=== PATIENT | male | born 1945 | race African-American/Black ===

== ENCOUNTER 2016-10-31 14:34 | Observation (INO) | payer OTHER ==
[~2016-10-31] VITALS: Ht 175.3 cm; Wt 65.8 kg
[2016-10-31 15:16] LABS: BASOPHILS % 1.4 % (0.0-2.0); EOSINOPHILS % 3.8 % (0.0-5.0); HEMATOCRIT. 35.9 % (42.0-52.0); LYMPHOCYTES % 20.3 % (20.0-50.0); MEAN CORPUSCULAR HEMOGLOBIN 28.1 pg (28.0-32.0); MEAN PLATELET VOLUME 8.7 fl (7.4-10.4); NEUTROPHILS % 63.5 % (40.0-76.0); PLATELET 205 x1000/uL (130-400); RED BLOOD CELL COUNT 4.27 mill/uL (4.7-6.1); RED CELL DISTRIBUTION WIDTH 14.4 % (11.6-14.6)
[2016-10-31 15:19] LABS: PROTHROMBIN TIME 10.4 sec (9.4-11.6)
[2016-10-31 15:28] LABS: CARBON DIOXIDE 25 mEq/L (21-32); CHLORIDE 101 mEq/L (98-107); TROPONIN I < 0.02 ng/mL (0.00-0.04)
[2016-10-31] MEDS ORDERED: SODIUM CHLORIDE 0.9% 1,000 ML IV ONE (18:38)
[2016-10-31 20:00] VITALS: BP 114/58
[2016-10-31 21:20] VITALS: BP 114/58
[2016-10-31] MEDS ORDERED: HYDR25TA PO (22:17)
[2016-10-31] MEDS ORDERED: AMLO10TA80 PO (22:17)
[2016-10-31] MEDS ORDERED: BENA20TA3 PO (22:17)
[2016-10-31] MEDS ORDERED: ACETAMINOPHEN 325MG TABLET PO PRN (22:45)
[2016-10-31] MEDS ORDERED: HYDROCODONE/ACETAMINOPHEN 5/325MG TABLET PO PRN (22:45)
[2016-10-31 23:34] LABS: CREATINE KINASE 61 IU/L (39-308); CREATINE KINASE MB FRACTION 0.9 ng/mL (0.5-3.6); TROPONIN I < 0.02 ng/mL (0.00-0.04)
[2016-11-01] VITALS: BP 91/50
[2016-11-01] MEDS: NICOTINE 14MG PATCH TD SCH ×2 (00:25→08:15)
[2016-11-01] MEDS: SODIUM CHLORIDE 0.9% 1,000 ML IV SCH ×2 (00:26→12:12)
[2016-11-01 04:00] VITALS: BP 109/58
[2016-11-01 06:08] LABS: BASOPHILS % 1.2 % (0.0-2.0); EOSINOPHILS % 5.7 % (0.0-5.0); HEMOGLOBIN. 11.3 g/dL (14.0-18.0); LYMPHOCYTES % 23.8 % (20.0-50.0); MEAN CORPUSCULAR HEMOGLOBIN 28.8 pg (28.0-32.0); MEAN CORPUSCULAR VOLUME 84.3 fL (80.0-94.0); MEAN PLATELET VOLUME 8.8 fl (7.4-10.4); MONOCYTES % 12.4 % (2.0-8.0); NEUTROPHILS % 56.9 % (40.0-76.0); PLATELET 182 x1000/uL (130-400); RED BLOOD CELL COUNT 3.91 mill/uL (4.7-6.1); RED CELL DISTRIBUTION WIDTH 14.4 % (11.6-14.6)
[2016-11-01] MEDS: LORAZEPAM 2MG/ML CPJ IV PRN ×2 (06:42→10:58)
[2016-11-01 06:59] LABS: CARBON DIOXIDE 26 mEq/L (21-32); CHLORIDE 104 mEq/L (98-107); CREATINE KINASE 58 IU/L (39-308); CREATINE KINASE MB FRACTION 0.6 ng/mL (0.5-3.6); HDL CHOLESTEROL 61 mg/dL (40-59); LDL CHOLESTEROL 74 mg/dL (5-100); TROPONIN I < 0.02 ng/mL (0.00-0.04)
[2016-11-01 07:36] VITALS: BP 113/63
[2016-11-01] MEDS ORDERED: PANTOPRAZOLE 40MG DR TABLET PO SCH (07:40)
[2016-11-01] MEDS ORDERED: ASPIRIN 81MG TABLET PO SCH (09:00)
[2016-11-01] MEDS ORDERED: ENOXAPARIN 40MG/0.4ML SYR SUBCUT SCH (09:00)
[2016-11-01 11:48] LABS: *AMPHETAMINES SCREEN URINE NEGATIVE (NEGATIVE); *BARBITURATES SCREEN URINE NEGATIVE (NEGATIVE); *BENZODIAZEPINES SCREEN URINE NEGATIVE (NEGATIVE); *COCAINE SCREEN URINE NEGATIVE (NEGATIVE); CANNABINOID URINE SCREEN PRESUMTIVE POSITIVE (NEGATIVE); METHADONE URINE SCREEN NEGATIVE (NEGATIVE); OPIATES URINE SCREEN PRESUMTIVE POSITIVE (NEGATIVE); PHENCYCLIDINE URINE SCREEN NEGATIVE (NEGATIVE)
[2016-11-01 12:00] VITALS: BP_SYST 117; BP_SYST 142; BP_SYST 99; BP_DIAS 59; BP_DIAS 82; BP_DIAS 91
[2016-11-01 14:53] VITALS: BP 99/59
== END 2016-11-01 15:09 | disposition left against medical advice (07) ==
LOC: ER 16:16 → EDBEDREQ 17:21 → ENRESERV 20:58 → 7WST 21:10 → INTOOBSV 21:10
PROVIDERS: ADMIT Internal Medicine; ATTEND Internal Medicine
DX: R55 Syncope and collapse (principal); F11.20 Opioid dependence, uncomplicated; I10 Essential (primary) hypertension
CPT/HCPCS: 36415; 71010; 80048; 80053; 80061; 80305; 82550; 82553; 83880; 84484; 85025; 85610; 93005; 93306; 96361; 96372; 96374; 96376; 99285; G0378; J1650; J2060; J7030; 96360

== ENCOUNTER 2019-11-12 12:37 | Inpatient (IN) | payer OTHER ==
[~2019-11-12] VITALS: Ht 180.3 cm; Wt 65.3 kg
[~2019-11-12 12:37] MED LIST: AMLO10TA80 PO; BENA20TA10 PO; HYDR25TA PO
[2019-11-12] MEDS ORDERED: ASPIRIN 81MG TABLET PO ONE (13:15)
[2019-11-12 13:19] LABS: BASOPHILS % 1.3 % (0.0-2.0); EOSINOPHILS % 1.1 % (0.0-5.0); HEMATOCRIT. 33.5 % (42.0-52.0); HEMOGLOBIN. 11.2 g/dL (14.0-18.0); LYMPHOCYTES % 11.5 % (20.0-50.0); MEAN CORPUSCULAR HEMOGLOBIN 27.4 pg (28.0-32.0); MEAN CORPUSCULAR VOLUME 82.3 fL (80.0-94.0); MEAN PLATELET VOLUME 8.6 fl (7.4-10.4); MONOCYTES % 5.2 % (2.0-8.0); NEUTROPHILS % 80.9 % (40.0-76.0); PLATELET 191 x1000/uL (130-400); RED BLOOD CELL COUNT 4.07 mill/uL (4.7-6.1); RED CELL DISTRIBUTION WIDTH 15.2 % (11.6-14.6)
[2019-11-12 13:29] LABS: CHLORIDE 104 mEq/L (98-107)
[2019-11-12 13:32] LABS: D-DIMER 2.24 mg/L FEU (<0.50); PARTIAL THROMBOPLASTIN TIME 31.6 sec (23.4-31.0); PROTHROMBIN TIME 10.5 sec (9.6-11.0)
[2019-11-12] MEDS ORDERED: ENOXAPARIN 80MG/0.8ML SYR SUBCUT ONE (15:45)
[2019-11-12] MEDS ORDERED: IOHEXOL-350 100 ML BOTTLE ONE (16:36)
[2019-11-12] MEDS ORDERED: CLONIDINE 0.1MG TABLET PO PRN (17:15)
[2019-11-12] MEDS ORDERED: NA PHOS,M-B/NA PHOS,DI-BA ENEMA 118ML PR PRN (17:15)
[2019-11-12] MEDS ORDERED: ONDANSETRON HCL 4MG/2ML INJ IV PRN (17:15)
[2019-11-12] MEDS ORDERED: MAGNESIUM/ALUMINUM HYDROXIDE/SIMETHICONE 30ML UDC PO PRN (17:15)
[2019-11-12] MEDS ORDERED: ACETAMINOPHEN 650MG SUPP PR PRN (17:15)
[2019-11-12] MEDS ORDERED: DIPHENHYDRAMINE 50MG/ML VIAL IV PRN (17:15)
[2019-11-12] MEDS ORDERED: IPRATROPIUM/ALBUTEROL 0.5-3(2.5)MG/3ML NEB NEB PRN (17:15)
[2019-11-12] MEDS ORDERED: LORAZEPAM 0.5MG TABLET PO PRN (17:15)
[2019-11-12] MEDS ORDERED: ACETAMINOPHEN 325MG TABLET PO PRN (17:15)
[2019-11-12] MEDS ORDERED: DOCUSATE SODIUM 100MG CAPSULE PO PRN (17:15)
[2019-11-12] MEDS ORDERED: GUAIFENESIN 200MG/10ML SUGAR FREE UDC PO PRN (17:15)
[2019-11-12] MEDS ORDERED: ENOXAPARIN 40MG/0.4ML SYR SUBCUT SCH (17:30)
[2019-11-12 20:45] VITALS: BP 128/83
[2019-11-12] MEDS ORDERED: FAMOTIDINE 20MG TABLET PO SCH (21:00)
[2019-11-12 22:10] VITALS: BP 128/83
[2019-11-12] MEDS: HYDROCODONE/ACETAMINOPHEN 5/325MG TABLET PO PRN (22:32)
[2019-11-12] MEDS ORDERED: METH-611 MT (23:23)
[2019-11-12 23:46] LABS: CREATINE KINASE MB FRACTION 4.9 ng/mL (0.5-3.6)
[2019-11-12 23:49] LABS: CLARITY URINE CLEAR (CLEAR); COLOR URINE YELLOW (YELLOW); KETONES URINE NEGATIVE (NEGATIVE); LEUKOCYTE ESTERASE URINE NEGATIVE (NEGATIVE); NITRITE URINE NEGATIVE (NEGATIVE); OCCULT BLOOD URINE NEGATIVE (NEGATIVE); PH URINE 5.5 (4.5-8.0); PROTEIN URINE NEGATIVE (NEGATIVE); SPECIFIC GRAVITY URINE 1.017 (1.005-1.030)
[2019-11-12 23:58] LABS: *AMPHETAMINES SCREEN URINE NEGATIVE (NEGATIVE); *BARBITURATES SCREEN URINE NEGATIVE (NEGATIVE); *BENZODIAZEPINES SCREEN URINE NEGATIVE (NEGATIVE)
[2019-11-12 23:59] LABS: *COCAINE SCREEN URINE NEGATIVE (NEGATIVE); CANNABINOID URINE SCREEN PRESUMTIVE POSITIVE (NEGATIVE); METHADONE URINE SCREEN NEGATIVE (NEGATIVE); OPIATES URINE SCREEN PRESUMTIVE POSITIVE (NEGATIVE); PHENCYCLIDINE URINE SCREEN NEGATIVE (NEGATIVE)
[2019-11-13] VITALS: BP 115/69
[2019-11-13 04:00] VITALS: BP 130/84
[2019-11-13 06:32] LABS: CHLORIDE 107 mEq/L (98-107)
[2019-11-13 06:42] LABS: LDL CHOLESTEROL 74 mg/dL (5-100)
[2019-11-13 06:43] LABS: CREATINE KINASE 164 IU/L (39-308)
[2019-11-13 06:44] LABS: HEMATOCRIT. 31.5 % (42.0-52.0); HEMOGLOBIN. 10.8 g/dL (14.0-18.0); MEAN CORPUSCULAR HEMOGLOBIN 27.8 pg (28.0-32.0); MEAN CORPUSCULAR VOLUME 81.2 fL (80.0-94.0); PLATELET 173 x1000/uL (130-400); RED BLOOD CELL COUNT 3.87 mill/uL (4.7-6.1); RED CELL DISTRIBUTION WIDTH 14.8 % (11.6-14.6)
[2019-11-13 06:45] LABS: T4 FREE 1.28 ng/dL (0.76-1.46)
[2019-11-13 06:46] LABS: HDL CHOLESTEROL 55 mg/dL (40-59)
[2019-11-13 08:00] VITALS: BP 115/75
[2019-11-13] MEDS ORDERED: PNEUMOCOCCAL 23-VAL P-SAC VAC 0.5 ML IM ONE (08:00)
[2019-11-13] MEDS ORDERED: ASPIRIN 81MG EC TABLET PO SCH (09:00)
[2019-11-13 12:00] VITALS: BP 125/69
[2019-11-13 13:49] VITALS: BP 125/69
[2019-11-13] MEDS: HYDROCODONE/ACETAMINOPHEN 5/325MG TABLET PO PRN (13:49)
[2019-11-13 22:22] LABS: PLATELET ESTIMATE NORMAL
[2019-11-14] MEDS ORDERED: ASPIRIN 81MG TABLET PO SCH (09:00)
== END 2019-11-13 14:55 | disposition left against medical advice (07) | DRG 282 ==
LOC: ER 12:37 → 5WST 16:12 → SUPCPDRO 17:02 → ENRESERV 19:45
PROVIDERS: ADMIT Internal Medicine; ATTEND Internal Medicine
DX: I21.4 Non-ST elevation (NSTEMI) myocardial infarction (principal); D64.9 Anemia, unspecified; I10 Essential (primary) hypertension; F19.10 Other psychoactive substance abuse, uncomplicated; Z53.29 Procedure and treatment not carried out because of patient's decision for other reasons; Z79.899 Other long term (current) drug therapy
CPT/HCPCS: 36415; 71045; 78582; 80053; 80061; 80305; 81003; 82550; 82553; 83880; 84439; 84443; 84484; 85025; 85379; 90732; 93005; 93306; 93970; 94640; 99285; A9558; J1650; Q9967

== ENCOUNTER 2020-10-14 10:20 | Inpatient (IN) | payer OTHER ==
[~2020-10-14] VITALS: Ht 180.3 cm; Wt 60.1 kg
[~2020-10-14 10:20] MED LIST changes: -HYDR25TA PO; +METH-819 MT
[2020-10-14] MEDS ORDERED: SODIUM CHLORIDE 0.9% 500 ML IV ONE (10:45)
[2020-10-14] MEDS ORDERED: NALOXONE HCL 1 MG/ML 2ML VIAL IV ONE (10:45)
[2020-10-14] MEDS ORDERED: IPRATROPIUM BROMIDE (0.02%) 0.5MG/2.5ML NEB HHN STA (11:21)
[2020-10-14] MEDS ORDERED: ALBUTEROL (0.083%) 2.5MG/3ML NEB HHN STA (11:21)
[2020-10-14 11:31] LABS: CHLORIDE 108 mEq/L (98-107)
[2020-10-14 11:33] LABS: BASOPHILS % 0.7 % (0.0-2.0); EOSINOPHILS % 4.3 % (0.0-5.0); HEMATOCRIT. 32.2 % (42.0-52.0); HEMOGLOBIN. 10.1 g/dL (14.0-18.0); MEAN CORPUSCULAR HEMOGLOBIN 25.4 pg (28.0-32.0); MEAN CORPUSCULAR VOLUME 81.1 fL (80.0-94.0); MEAN PLATELET VOLUME 8.6 fl (7.4-10.4); MONOCYTES % 8.7 % (2.0-8.0); NEUTROPHILS % 71.3 % (40.0-76.0); PLATELET 303 x1000/uL (130-400); RED BLOOD CELL COUNT 3.97 mill/uL (4.7-6.1); RED CELL DISTRIBUTION WIDTH 15.1 % (11.6-14.6)
[2020-10-14 11:35] LABS: ETHANOL BLOOD < 10 mg/dL
[2020-10-14 12:10] LABS: BG BASE EXCESS -0.7 mmol/L (-2.0-2.0); BG CARBOXYHEMOGLOBIN 0.2 % (0.5-1.5); BG DEOXYHEMOGLOBIN 0.5 % (0.0-5.0); BG FRACTION INSPIRED OXYGEN 60; BG HCO3 ACT 23.7 mmol/L (22.0-26.0); BG METHEMOGLOBIN 0.2 % (0.0-1.5); BG OXYGEN SATURATION 99.5 % (92.0-98.5); BG OXYHEMOGLOBIN 99.1 % (94.0-97.0); BG PH 7.412 (7.350-7.450); BG PO2 173.6 mmHg (75.0-100.0); BG SAMPLE SITE RIGHT RADIAL; BG TOTAL HEMOGLOBIN 10.5 g/dL (12.0-18.0); BG VENT MODE HHN
[2020-10-14 20:01] LABS: CLARITY URINE CLEAR (CLEAR); COLOR URINE YELLOW (YELLOW); KETONES URINE NEGATIVE (NEGATIVE); LEUKOCYTE ESTERASE URINE NEGATIVE (NEGATIVE); NITRITE URINE NEGATIVE (NEGATIVE); OCCULT BLOOD URINE NEGATIVE (NEGATIVE); PH URINE 7.5 (4.5-8.0); PROTEIN URINE NEGATIVE (NEGATIVE); SPECIFIC GRAVITY URINE 1.014 (1.005-1.030); UROBILINOGEN URINE 0.2 E.U./dL (0.2-1.0)
[2020-10-14 20:40] LABS: *AMPHETAMINES SCREEN URINE NEGATIVE (NEGATIVE); *BARBITURATES SCREEN URINE NEGATIVE (NEGATIVE)
[2020-10-14 20:41] LABS: *BENZODIAZEPINES SCREEN URINE NEGATIVE (NEGATIVE); CANNABINOID URINE SCREEN NEGATIVE (NEGATIVE); METHADONE URINE SCREEN NEGATIVE (NEGATIVE); OPIATES URINE SCREEN PRESUMTIVE POSITIVE (NEGATIVE); PHENCYCLIDINE URINE SCREEN NEGATIVE (NEGATIVE)
[2020-10-14 20:42] LABS: *COCAINE SCREEN URINE NEGATIVE (NEGATIVE)
[2020-10-15 06:00] VITALS: BP 149/73
[2020-10-15] MEDS ORDERED: PIPERACILLIN/TAZOBACTAM 3.375 G/VIAL IV SCH (06:00)
[2020-10-15] MEDS ORDERED: DEXT 5%/0.45% NACL 1000ML 1,000 ML IV SCH (06:00)
[2020-10-15 07:38] LABS: CHLORIDE 104 mEq/L (98-107)
[2020-10-15 07:59] LABS: BASOPHILS % 0.7 % (0.0-2.0); EOSINOPHILS % 2.4 % (0.0-5.0); HEMATOCRIT. 33.2 % (42.0-52.0); HEMOGLOBIN. 10.5 g/dL (14.0-18.0); LYMPHOCYTES % 13.1 % (20.0-50.0); MEAN CORPUSCULAR HEMOGLOBIN 25.6 pg (28.0-32.0); MEAN CORPUSCULAR VOLUME 80.4 fL (80.0-94.0); MEAN PLATELET VOLUME 8.8 fl (7.4-10.4); MONOCYTES % 6.8 % (2.0-8.0); PLATELET 338 x1000/uL (130-400); RED BLOOD CELL COUNT 4.12 mill/uL (4.7-6.1); RED CELL DISTRIBUTION WIDTH 14.6 % (11.6-14.6)
[2020-10-15 08:00] VITALS: BP 160/68
[2020-10-15] MEDS ORDERED: PIPERACILLIN/TAZOBACTAM 3.375G in DEXT 5% WATER 50ML IV SCH (08:00)
[2020-10-15] MEDS ORDERED: HEPARIN 5000 UNITS/ML VIAL SUBCUT SCH (09:00)
[2020-10-15] MEDS ORDERED: RISPERIDONE 1MG TABLET PO SCH (09:00)
== END 2020-10-15 12:36 | disposition left against medical advice (07) | DRG 93 ==
LOC: ER 10:20 → MICUSO 13:42 → EDBEDREQSVC 13:51 → EDBEDREQTM 13:51 → EDBEDREQ 18:47 → 6WST 10-15 02:32
PROVIDERS: ADMIT Internal Medicine Pulmonary Disease; ATTEND Internal Medicine Pulmonary Disease
DX: G92 Toxic encephalopathy (principal); F17.200 Nicotine dependence, unspecified, uncomplicated; I10 Essential (primary) hypertension; F11.10 Opioid abuse, uncomplicated; K75.9 Inflammatory liver disease, unspecified; Z53.29 Procedure and treatment not carried out because of patient's decision for other reasons; Z79.899 Other long term (current) drug therapy; Z82.49 Family history of ischemic heart disease and other diseases of the circulatory system
CPT/HCPCS: 36415; 36600; 71045; 80053; 80305; 80320; 81003; 82375; 82805; 82962; 84443; 84484; 85025; 93005; 94640; 99291; J1644; J2310; J2543; J7040; J7060; G0480

== ENCOUNTER 2021-03-22 12:15 | Emergency (ER) | payer OTHER ==
[~2021-03-22] VITALS: Ht 172.7 cm; Wt 71.0 kg
[2021-03-22 12:47] LABS: BASOPHILS % 0.5 % (0.0-2.0); EOSINOPHILS % 1.4 % (0.0-5.0); HEMATOCRIT. 37.6 % (42.0-52.0); HEMOGLOBIN. 12.2 g/dL (14.0-18.0); LYMPHOCYTES % 9.3 % (20.0-50.0); MEAN CORPUSCULAR HEMOGLOBIN 26.5 pg (28.0-32.0); MEAN CORPUSCULAR VOLUME 81.8 fL (80.0-94.0); NEUTROPHILS % 82.8 % (40.0-76.0); PLATELET 559 x1000/uL (130-400); RED BLOOD CELL COUNT 4.59 mill/uL (4.7-6.1); RED CELL DISTRIBUTION WIDTH 16.2 % (11.6-14.6)
[2021-03-22 12:53] LABS: CHLORIDE 100 mEq/L (98-107)
[2021-03-22] MEDS ORDERED: MORPHINE SULFATE 4 MG/ML CPJ (NOT FOR IM USE) IV NR (16:45)
[2021-03-22] MEDS ORDERED: IOHEXOL-350 100 ML BOTTLE ONE (23:27)
[2021-03-23] MEDS ORDERED: MORPHINE SULFATE 4 MG/ML CPJ (NOT FOR IM USE) IV ONE ×2 (00:15→17:45)
[2021-03-23] MEDS ORDERED: MORPHINE SULFATE 4 MG/ML CPJ (NOT FOR IM USE) IV STA ×2 (08:43→12:31)
[2021-03-23] MEDS ORDERED: ONDANSETRON HCL 4MG/2ML INJ IV STA ×2 (08:43→12:31)
[2021-03-23 20:54] VITALS: BP 114/65
== END 2021-03-24 05:27 | disposition left against medical advice (07) ==
LOC: ER 12:15 → CANBEDREQ 23:33 → ER 03-24 05:27
DX: R22.1 Localized swelling, mass and lump, neck (principal); R06.02 Shortness of breath; I11.9 Hypertensive heart disease without heart failure; F11.10 Opioid abuse, uncomplicated; Z75.1 Person awaiting admission to adequate facility elsewhere; Z20.822 Contact with and (suspected) exposure to COVID-19; Z85.118 Personal history of other malignant neoplasm of bronchus and lung; Z85.21 Personal history of malignant neoplasm of larynx; Z86.19 Personal history of other infectious and parasitic diseases
CPT/HCPCS: 36415; 70491; 71045; 71275; 80053; 83880; 84484; 85025; 87426; 93005; 96374; 96375; 96376; 99285; J2270; J2405; Q9967

== ENCOUNTER 2021-04-04 11:58 | Inpatient (IN) | payer OTHER ==
[~2021-04-04] VITALS: Ht 175.3 cm; Wt 69.9 kg
[2021-04-04] MEDS ORDERED: IPRATROPIUM BROMIDE (0.02%) 0.5MG/2.5ML NEB HHN STA (12:15)
[2021-04-04] MEDS ORDERED: METHYLPREDNISOLONE SOD SUCC 125 MG/2 ML VIAL IV STA (12:15)
[2021-04-04] MEDS ORDERED: MAGNESIUM 2 G PREMIX 50 ML IV ONE (12:15)
[2021-04-04] MEDS: ASPIRIN 81MG TABLET PO ONE ×2 (12:28→12:32)
[2021-04-04] MEDS ORDERED: ASPIRIN 300MG SUPP PR SCH (12:45)
[2021-04-04 12:48] LABS: CHLORIDE 110 mEq/L (98-107)
[2021-04-04 12:53] LABS: EOSINOPHILS % 0.9 % (0.0-5.0); HEMATOCRIT. 41.1 % (42.0-52.0); MEAN CORPUSCULAR HEMOGLOBIN 26.3 pg (28.0-32.0); MEAN CORPUSCULAR VOLUME 82.9 fL (80.0-94.0); MEAN PLATELET VOLUME 9.1 fl (7.4-10.4); MONOCYTES % 6.4 % (2.0-8.0); NEUTROPHILS % 81.7 % (40.0-76.0); PLATELET 419 x1000/uL (130-400); RED BLOOD CELL COUNT 4.96 mill/uL (4.7-6.1); RED CELL DISTRIBUTION WIDTH 16.4 % (11.6-14.6)
[2021-04-04] MEDS: ALBUTEROL (0.083%) 2.5MG/3ML NEB HHN SCH ×3 (13:00→13:30)
[2021-04-04 13:55] LABS: BG BASE EXCESS -1.8 mmol/L (-2.0-2.0); BG CARBOXYHEMOGLOBIN 0.5 % (0.5-1.5); BG DEOXYHEMOGLOBIN 4.7 % (0.0-5.0); BG FRACTION INSPIRED OXYGEN 40; BG HCO3 ACT 22.8 mmol/L (22.0-26.0); BG METHEMOGLOBIN 0.3 % (0.0-1.5); BG OXYGEN SATURATION 95.3 % (92.0-98.5); BG OXYHEMOGLOBIN 94.5 % (94.0-97.0); BG PCO2 38.6 mmHg (35.0-45.0); BG PO2 80.3 mmHg (75.0-100.0); BG SAMPLE SITE RIGHT RADIAL; BG TOTAL HEMOGLOBIN 13.1 g/dL (12.0-18.0); BG VENT MODE MASK - BIPAP
[2021-04-04 15:09] LABS: CLARITY URINE CLEAR (CLEAR); COLOR URINE YELLOW (YELLOW); KETONES URINE TRACE (NEGATIVE); LEUKOCYTE ESTERASE URINE NEGATIVE (NEGATIVE); NITRITE URINE NEGATIVE (NEGATIVE); OCCULT BLOOD URINE NEGATIVE (NEGATIVE); PROTEIN URINE 1+ (NEGATIVE); SPECIFIC GRAVITY URINE 1.016 (1.005-1.030)
[2021-04-04] MEDS ORDERED: CEFTRIAXONE 1 G PREMIX 50 ML IV ONE (16:00)
[2021-04-04] MEDS ORDERED: AZITHROMYCIN 500MG/250ML 250 ML IV ONE (16:00)
[2021-04-05] MEDS: MORPHINE SULFATE 2 MG/ML CPJ (NOT FOR IM USE) IV PRN ×3 (01:36→21:11)
[2021-04-05] MEDS ORDERED: ONDANSETRON HCL 4MG/2ML INJ IV ONE (09:30)
[2021-04-05] MEDS ORDERED: MORPHINE SULFATE 4 MG/ML CPJ (NOT FOR IM USE) IV ONE (09:30)
[2021-04-05] MEDS ORDERED: CEFTRIAXONE 1 G PREMIX 50 ML IV SCH (11:30)
[2021-04-05] MEDS ORDERED: ONDANSETRON HCL 4MG/2ML INJ IV PRN (11:30)
[2021-04-05] MEDS ORDERED: IPRATROPIUM/ALBUTEROL 0.5-3(2.5)MG/3ML NEB HHN PRN (12:00)
[2021-04-05] MEDS ORDERED: AZITHROMYCIN 500 MG in DEXT 5% WATER 250 ML IV SCH (12:00)
[2021-04-05] MEDS: DEXTROSE 5% WATER 1,000 ML IV SCH ×2 (12:16→21:12)
[2021-04-05] MEDS: METHYLPREDNISOLONE SOD SUCC 40 MG/ML VIAL IV SCH ×2 (12:17→21:10)
[2021-04-05] MEDS: PANTOPRAZOLE SODIUM 40 MG/VIAL IV SCH (12:17)
[2021-04-05] MEDS ORDERED: NALOXONE HCL 0.4MG/ML VIAL IV PRN (15:00)
[2021-04-05] MEDS ORDERED: MORPHINE SULFATE 2 MG/ML CPJ (NOT FOR IM USE) IV PRN (15:00)
[2021-04-05 16:04] LABS: HEMATOCRIT. 35.1 % (42.0-52.0); HEMOGLOBIN. 11.2 g/dL (14.0-18.0); MEAN CORPUSCULAR HEMOGLOBIN 26.1 pg (28.0-32.0); MEAN CORPUSCULAR VOLUME 81.3 fL (80.0-94.0); MEAN PLATELET VOLUME 8.7 fl (7.4-10.4); PLATELET 314 x1000/uL (130-400); RED BLOOD CELL COUNT 4.31 mill/uL (4.7-6.1); RED CELL DISTRIBUTION WIDTH 16.5 % (11.6-14.6)
[2021-04-05 16:15] LABS: CHLORIDE 109 mEq/L (98-107)
[2021-04-05 16:26] LABS: PLATELET ESTIMATE NORMAL
[2021-04-05] MEDS ORDERED: MORPHINE SULFATE 2 MG/ML CPJ (NOT FOR IM USE) IV NR (17:15)
[2021-04-05 17:55] VITALS: BP 107/62
[2021-04-05 20:00] VITALS: BP 105/63
[2021-04-05] MEDS: AZITHROMYCIN 500 MG in DEXT 5% WATER 250 ML IV SCH (21:12)
[2021-04-06] VITALS: BP 102/65
[2021-04-06] MEDS: MORPHINE SULFATE 2 MG/ML CPJ (NOT FOR IM USE) IV PRN ×4 (01:43→20:50)
[2021-04-06 04:00] VITALS: BP 106/65
[2021-04-06] MEDS: METHYLPREDNISOLONE SOD SUCC 40 MG/ML VIAL IV SCH ×3 (05:37→22:03)
[2021-04-06 07:25] LABS: HEMATOCRIT. 34.4 % (42.0-52.0); HEMOGLOBIN. 11.2 g/dL (14.0-18.0); MEAN CORPUSCULAR HEMOGLOBIN 26.4 pg (28.0-32.0); MEAN PLATELET VOLUME 9.3 fl (7.4-10.4); PLATELET 299 x1000/uL (130-400); RED BLOOD CELL COUNT 4.25 mill/uL (4.7-6.1); RED CELL DISTRIBUTION WIDTH 16.1 % (11.6-14.6)
[2021-04-06 07:51] LABS: CHLORIDE 105 mEq/L (98-107)
[2021-04-06 08:00] VITALS: BP 115/68
[2021-04-06] MEDS ORDERED: CEFTRIAXONE 1,000 MG in DEXTROSE 5% WATER 50 ML IV SCH (09:00)
[2021-04-06] MEDS: PANTOPRAZOLE SODIUM 40 MG/VIAL IV SCH (09:38)
[2021-04-06] MEDS ORDERED: ENOXAPARIN 40MG/0.4ML SYR SUBCUT SCH (11:30)
[2021-04-06 13:17] LABS: PLATELET ESTIMATE NORMAL
[2021-04-06] MEDS: DEXTROSE 5% WATER 1,000 ML IV SCH (15:19)
[2021-04-06 16:00] VITALS: BP 120/71
[2021-04-06] MEDS: AZITHROMYCIN 500 MG in DEXT 5% WATER 250 ML IV SCH (17:03)
[2021-04-06 20:00] VITALS: BP 125/71
[2021-04-06] MEDS ORDERED: FAMOTIDINE 20MG/2ML VIAL IV SCH (21:00)
[2021-04-07] VITALS: BP 146/88
[2021-04-07 02:02] VITALS: BP 146/88
[2021-04-07] MEDS: MORPHINE SULFATE 2 MG/ML CPJ (NOT FOR IM USE) IV PRN (02:02)
[2021-04-07] MEDS: METHYLPREDNISOLONE SOD SUCC 40 MG/ML VIAL IV SCH (06:00)
[2021-04-07 07:50] LABS: INR 1.1; PROTHROMBIN TIME 11.3 sec (9.6-11.0)
== END 2021-04-07 10:25 | disposition left against medical advice (07) | DRG 190 ==
LOC: ER 11:58 → MICUSO 15:55 → 8WST 04-05 14:49
PROVIDERS: ADMIT Internal Medicine; ATTEND Internal Medicine
PROC: 5A09357 Assistance with Respiratory Ventilation, Less than 24 Consecutive Hours, Continuous Positive Airway Pressure (ICD-10-PCS; principal; 2021-04-04)
DX: J44.1 Chronic obstructive pulmonary disease with (acute) exacerbation (principal); J18.9 Pneumonia, unspecified organism; J96.11 Chronic respiratory failure with hypoxia; E87.0 Hyperosmolality and hypernatremia; I11.0 Hypertensive heart disease with heart failure; J38.7 Other diseases of larynx; D64.9 Anemia, unspecified; E83.52 Hypercalcemia; J44.0 Chronic obstructive pulmonary disease with (acute) lower respiratory infection; I50.9 Heart failure, unspecified; E86.0 Dehydration; C80.1 Malignant (primary) neoplasm, unspecified; Z20.822 Contact with and (suspected) exposure to COVID-19; E87.6 Hypokalemia; R59.0 Localized enlarged lymph nodes; F17.210 Nicotine dependence, cigarettes, uncomplicated; Z53.29 Procedure and treatment not carried out because of patient's decision for other reasons; Z79.899 Other long term (current) drug therapy; Z85.819 Personal history of malignant neoplasm of unspecified site of lip, oral cavity, and pharynx; Z82.49 Family history of ischemic heart disease and other diseases of the circulatory system; K75.9 Inflammatory liver disease, unspecified
CPT/HCPCS: 36415; 36600; 70490; 71045; 80048; 80053; 81003; 82375; 82805; 83880; 84484; 85025; 87426; 87804; 93005; 94660; 99291; C9113; J0456; J0696; J2270; J2405; J2920; J2930; J3475; J3490; J7060; J7070